=== PATIENT | female | born 1935 | race Caucasian/White ===

== ENCOUNTER 2022-10-14 11:33 | Day surgery (SDC) | payer MEDICARE, OTHER, SELFPAY ==
[2022-10-06 13:34] VITALS: BMI 22.1
[2022-10-14] VITALS (9 sets, daily range): BP systolic 124–185; BP diastolic 50–78; PULSE 62–82; RESP 12–20; TEMP 36.1–36.7; O2SAT 94–100; BMI 22.1; BMI 23.4
--- NOTE | 2022-10-14 | DI.RAD.S_ITS ---
PROCEDURE: [id number] W PEL IF PERFORMED INDICATIONS: INTRA OP TOTAL LEFT HIP TECHNIQUE: AP pelvis with lateral view(s) of the left hip(s). COMPARISON: [facility], CR, XR HIP W PEL IF DONE LT 2V, 10/14/2022, 15:37. Findings and impression: Multiple intraoperative images were obtained for left hip arthroplasty, which appears in appropriate position. Please see operative note for full details. Partially seen right hip degenerative changes. Dictated by: Brant Damon M.D. on 10/14/2022 at 17:26 Approved by: Brant Damon M.D. on 10/14/2022 at 17:26
--- NOTE | 2022-10-14 06:00 | DI.RAD.S_ITS ---
PROCEDURE: XR HIP W PEL IF DONE LT 2V INDICATIONS: left CHRISTIANO, anterior TECHNIQUE: AP pelvis with lateral view(s) of the left hip(s). COMPARISON: [facility] GENNA Aguilar, XR PELVIS WITH LATERAL HIP LEFT, 04/12/2022, 11:27. FINDINGS: Postsurgical changes reflecting left hip arthroplasty are present. Hardware is intact in good anatomic position. Soft tissues demonstrate postsurgical change. Severe arthritic changes are noted within the right hip. IMPRESSION: Status post left hip arthroplasty. Dictated by: Maude Avila M.D. on 10/14/2022 at 16:04 Approved by: Maude Avila M.D. on 10/14/2022 at 16:05
[2022-10-14] MEDS: MELOXICAM 7.5 MG TABLET 15 MG PO (12:07)
[2022-10-14] MEDS: VANCOMYCIN 1,000 MG/200 ML PIGGYBACK 200 MG IV (12:08)
[2022-10-14] MEDS: LACTATED RINGERS 1,000 ML 42 ML IV (12:08)
[2022-10-14 12:09] LABS: Add Manual Diff / Slide Review NO; Basophils Absolute Auto 0 /uL (0-100); Basophils Percent Auto 0.8 % (0-2); Eosinophils Absolute Auto 100 /uL (0-450); Eosinophils Percent Auto 1.3 % (2-4); Hemoglobin 12.9 g/dL (12.0-16.0); Lymphocytes Absolute Auto 1400 /uL (1100-4500); Lymphocytes Percent Auto 26.4 % (25-40); Mean Corpuscular Hemoglobin 32.8 PG (26-34); Mean Corpuscular Volume 96.2 fL (80-100); Monocytes Absolute Auto 300 /uL (0-900); Monocytes Percent Auto 6.3 % (3-14); Neutrophils Absolute Auto 3400 /uL (1500-7000); Neutrophils Percent Auto 65.2 % (50-75); Platelet Count 191 X10^3/uL (150-400); Red Blood Cell Count 3.95 X10^6/uL (4.0-5.2); Red Cell Distribution Width 12.5 % (11.6-14.8); White Blood Cell Count 5.3 X10^3/uL (4.5-11.0)
[2022-10-14 12:22] LABS: COVID19 -Nasal RAPID Negative (Negative)
--- NOTE | 2022-10-14 12:46 | PM.PREOP ---
Pre-operative Note Interval Note History & Physical reviewed/Exam performed by Physician: Yes Changes to H&P: No
--- NOTE | 2022-10-14 12:47 | PM.OP.1 ---
Operative Date/Time/Diagnoses Date of procedure: 10/14/22 Time of procedure: 12:47 Pre-op diagnosis: left hip OA Post-op diagnosis: same Procedure & Clinicians Procedure: left total hip arthroplasty anterior approach Same procedure as scheduled: Yes Indications: The patient has had progressively worsening left hip pain with radiographic changes consistent with arthritis. Non-operative management has failed and the patient has requested total hip replacement. The risks, benefits and alternatives to surgery were discussed with the patient prior to proceeding. Risks discussed included, but were not limited to, failure to relieve pain, leg length discrepancy, dislocation, stiffness, infection, nerve damage, deep venous thrombosis, pulmonary embolism, stroke, coma, heart attack, permanent paralysis and , as well as the potential need for eventual revision of the prosthetic. Surgeon: Kassy Ying Appeals Coordinator: Jose Raul Estrella Anesthesia Type: General and Spinal Operative Notes Findings: Soft bone, adequate stability Closure Type: primary Specimen(s): none sent Prosthetic devices, grafts, tissues, transplants, or devices: Ying and nephew anthology standard offset size 6, size 50 acetabulum R3, neutral poly liner, 32 x -3 cobalt chrome head, one 6.5 mm screw Estimated Blood Loss (mL): 250 Blood products transfused: none Procedure in detail: The patient was brought to the operating room. Patient was carefully positioned in the supine position. Time-out was performed and antibiotics were given. Anesthesia was induced. She was positioned in the on the table in order to allow hyperextension of the hip. The left lower extremity was prepped and draped in a standard sterile fashion. An anterior left hip incision was made 1 fingerbreadth lateral to the anterior superior iliac spine and extended distally towards the greater trochanter. Dissection was carried out through skin and subcutaneous tissues. Superficial hemostasis was achieved. The fascia over the tensor fascia juan luis was defined and incised with a knife. Two Allis clamps were used to grasp the fascia. Tensor fascia juan luis was retracted laterally. A gelpi retractor was placed. Dissection was carried out down along the neck. The circumflex vessels were carefully identified and cauterized with the Aqua Mantis. There was good visualization of the femoral neck. A Cobra was placed superior to the neck and the gluteus fibers were carefully stripped from that superior aspect of the capsule. A 2nd retractor was placed along the inferior aspect of the neck. The rectus insertion along the capsule was partially released. A 3rd retractor that was then gently placed over the rim of the acetabulum under the rectus. Capsule was carefully incised and released from the intertrochanteric line circumferentially superior to the mid sagittal line and inferiorly to the mid sagittal line until the lesser trochanter was palpable. A tag stitch was placed both in the superior and inferior limb of the capsular insertion. Along the acetabulum capsule was also released up to the mid sagittal 12:00 position. A portion of the labrum was resected. A saw was used to perform an osteotomy at the level of the intertrochanteric line and the junction of the superior femoral neck leaving approximately 1 finger breath of residual inferior neck above the lesser trochanter. A 2nd cut was made along the femoral neck at the base of the head and a napkin ring of neck was removed. Corkscrew was placed in the femoral head and the head was removed without difficulty. Retractors were then repositioned around the acetabulum. Residual labrum was resected and additional osteophytes were removed. A reamer that was 4 mm below the templated size was placed by hand in the acetabulum and it was reamed to centralize the acetabulum. It was then reamed up to 2 under the templated size and fluoroscopy was brought in to confirm the position of the reaming and depth of reaming. I reamed 1 under the anticipated size. A trial cup was placed and noted that it was appropriately sized and fluoroscopy confirmed position and depth. Small amount of the posterolateral wall which was mainly osteophyte broke off it was carefully removed. The cup was meticulously checked to make sure that there was adequate bony support for the acetabular component. The component was open and inserted without difficulty fluoroscopic imaging was used to confirm that the cup had been adequately seated and was well positioned. It was further stabilized with a single screw. Neutral poly liner was placed. The cup was tested and noted to be stable. Attention was then directed to the femur. The femur was gently hyperextended additional capsular release was performed as needed in order to allow adequate visualization of the proximal femur with elevation of the femur. Patient was placed in a hyperextended slightly adducted position with maximum external rotation. Box osteotome was used to check for any residual neck as well as sclerotic bone along the trochanter. [place] pepper was placed in the femur. Additional broaching was performed. Canal finder was used to determine the alignment of the canal and position. Size 1 broach was placed. The canal was then appropriately broached up to the templated size as long as there was adequate stability of the broach and serial advancement of the broach without excessive impingement. Specific attention was directed at avoiding varus attempting to direct the distal aspect of the broach more anteriorly and avoiding excessive anteversion. Trial reduction showed acceptable range of motion, good stability, no posterior impingement, sabianism of leg length and appropriate lateral shuck. I also hyperflexed the hip and checked that there was no impingement anteriorly and there was good stability with flexion, adduction and internal rotation. Marcaine and Exparel were injected.. The stem was placed without difficulty. Repeat trial reduction and x-ray showed acceptable overall position, length, and no evidence of the femoral fracture. Final head was placed. Wound was meticulously irrigated with normal saline. The hip was reduced and additional Exparel and Marcaine were injected. The capsule was closed with interrupted nonabsorbable sutures. The fascia of the tensor was closed with interrupted and running Vicryl. No drain was placed. Any tensor fascia juan luis muscle that appeared to be contused or injured which was a minimal amount was carefully resected. Capsule around the tensor was injected with Exparel and Marcaine. The skin was closed with barbed stitches for the subcutaneous tissue and skin. We also used surgical glue. The wound was dressed sterilely. Brief Betadine soak was also used and was meticulously irrigated with normal saline. Patient was transferred to recovery room in satisfactory condition. Complications: none Post-operative Condition: stable Disposition: observation Plan for aftercare: The patient will be maintained on a standard total hip replacement protocol with weight bearing as tolerated and anterior hip precautions. The patient will receive Aspirin and sequential compression devices for DVT prophylaxis. The patient will be discharged home when safe for the home environment.
[2022-10-14] MEDS: CEFAZOLIN 2 GM/100 ML PREMIX 100 ML IV ×2 (13:21→21:17)
--- NOTE | 2022-10-14 13:54 | SUR.OPER ---
Supine on padded [place] table with bilateral legs secured in padded positioning boots and suspended in positioning spars, operative leg in traction per surgeon. Head on one pillow. Arm on non-operative side secured on padded armboard <90 degrees abduction. Arm on operative side padded and resting across chest then secured with tape over sheet. Padded perineal post in place per surgeon.
[2022-10-14] MEDS: BUPIVACAINE LIPOSOME 266 MG/20 ML VIAL INJ (14:01)
[2022-10-14] MEDS: BUPIVACAINE 0.25% (PF) 60 ML, EPINEPHrine 0.3 MG INJ (14:02)
[2022-10-14] MEDS: BUPIVACAINE 0.5% (PF) 10 ML VIAL 50 ML INJ (14:05)
[2022-10-14] MEDS: TRANEXAMIC ACID 1,000 MG VIAL 2000 MG INJ (15:10)
[2022-10-14] MEDS: IBUPROFEN 400 MG TABLET PO ×2 (16:36→21:17)
[2022-10-14] MEDS: LACTATED RINGERS 1,000 ML 100 ML IV (16:36)
[2022-10-14] MEDS: ACETAMINOPHEN 325 MG TABLET 650 MG PO ×2 (16:36→22:05)
[2022-10-14] MEDS: BRIMONIDINE 0.2% OPHTH 5 ML 1 DROPS EYE-BOTH (19:50)
[2022-10-14] MEDS: CYCLOSPORINE 0.05% 1 EACH EYE-BOTH (19:51)
[2022-10-14] MEDS: ASPIRIN EC 81 MG TABLET PO (21:17)
[2022-10-14] MEDS: TIMOLOL 0.5% OPHTH 1 DROPS EYE-BOTH (21:18)
[2022-10-14] MEDS: AMLODIPINE 5 MG TABLET PO (21:18)
[2022-10-15] VITALS: BP 140/53; PULSE 75; RESP 17; TEMP 36.3; O2SAT 94
[2022-10-15 04:32] VITALS: BP 131/54; PULSE 61; RESP 18; TEMP 36.5; O2SAT 96
[2022-10-15] MEDS: CEFAZOLIN 2 GM/100 ML PREMIX 100 ML IV (05:12)
[2022-10-15 05:49] LABS: Hematocrit 29.7 % (36-46); Hemoglobin 10.3 g/dL (12.0-16.0)
--- NOTE | 2022-10-15 06:55 | PM.DS.1 ---
History of Present Illness History of Present Illness Date Patient Seen: 10/15/22 Time Patient Seen: 06:55 Chief complaint: Left CHRISTIANO *OPB* Narrative: Operative Date/Time/Diagnoses Date of procedure: 10/14/22 Time of procedure: 12:47 Pre-op diagnosis: left hip OA Post-op diagnosis: same Procedure & Clinicians Procedure: left total hip arthroplasty anterior approach Same procedure as scheduled: Yes Indications: The patient has had progressively worsening left hip pain with radiographic changes consistent with arthritis. Non-operative management has failed and the patient has requested total hip replacement. The risks, benefits and alternatives to surgery were discussed with the patient prior to proceeding. Risks discussed included, but were not limited to, failure to relieve pain, leg length discrepancy, dislocation, stiffness, infection, nerve damage, deep venous thrombosis, pulmonary embolism, stroke, coma, heart attack, permanent paralysis and , as well as the potential need for eventual revision of the prosthetic. Surgeon: Kassy Ying Director Family: Jose Raul Estrella Anesthesia Type: General and Spinal Operative Notes Findings: Soft bone, adequate stability Closure Type: primary Specimen(s): none sent Prosthetic devices, grafts, tissues, transplants, or devices: Ying and nephew anthology standard offset size 6, size 50 acetabulum R3, neutral poly liner, 32 x -3 cobalt chrome head, one 6.5 mm screw Estimated Blood Loss (mL): 250 Blood products transfused: none Discharge Providers Provider Discharge Date: 10/15/22 Primary care physician: OVI Hammer Consults: 10/14/22 06:00 Consult to Anesthesiology Routine Comment: Consulting Provider: Anesthesiologist Reason for consultation: Regional block for post operative pain control 10/14/22 16:06 Consult to Discharge Planning Routine Comment: Consult to Physical Therapy Evaluate & Treat Comment: Physician Instructions: post op CHRISTIANO protocol Discharge provider: Soco Savage PA-C Summary Hospital Course Discharge Diagnosis: Left hip osteoarthritis, s/p left total hip arthroplasty Hospital Course: Ms Barlow's hospital course was unremarkable. On POD#1 she was feeling well and wanted to go home. She was eating and voiding without difficulty and her pain was well-controlled with oral medication. She had not yet been evaluated by PT at the time of my visit. Exam Vital Signs (past 8 hours): - 10/15/22 00:00 10/15/22 04:32 Temperature 97.3 F L 97.7 F Pulse Rate 75 61 Respiratory Rate 17 18 Blood Pressure 140/53 L 131/54 L Pulse Oximetry 94 96 Oxygen Flow Rate 0 0 Oxygen Delivery Method Room Air Oxygen Flow Rate 0 Narrative Exam Narrative: 5/5 strength in hip flexors, quadriceps, hamstrings, DF, PF, EHL on left. Sensation to light touch intact throughout LLE. Calves soft, compressible, nontender and without palpable cords or masses. Aquacel dressing w/ scant bloody drainage, otherwise intact. Objective Labs 10/15/22 04:55 Labs: Laboratory Results - last 24 hr 10/14/22 10/14/22 10/15/22 11:52 12:00 04:55 WBC 5.3 RBC 3.95 L Hgb 12.9 10.3 L Hct 38.0 29.7 L MCV 96.2 MCH 32.8 MCHC 34.0 RDW 12.5 Plt Count 191 Neut % (Auto) 65.2 Lymph % (Auto) 26.4 [place] % (Auto) 6.3 Eos % (Auto) 1.3 L Baso % (Auto) 0.8 Neut # (Auto) 3400 Lymph # (Auto) 1400 [place] # (Auto) 300 Eos # (Auto) 100 Baso # (Auto) 0 SARS-CoV-2 (PCR) Negative PFSH Medical History (Updated 10/06/22 @ 14:14 by Fransisca García RN) Glaucoma HTN (hypertension) Osteoarthritis Seasonal allergies Surgical History (Updated 10/06/22 @ 14:14 by Fransisca García RN) History of partial colectomy (1993) Hx of bilateral cataract extraction Social History household members: none Smoking Status: Never smoker alcohol intake: current Discharge Assessment & Plan Assessment and Plan Assessment: Left hip osteoarthritis, s/p left total hip arthroplasty Plan of Treatment: Discharge home after PT if PT feels it is appropriate. Pt has discharge meds at home. ASA BID x 6 weeks for VTE prophylaxis, outpt PT, f/u in office in 2 weeks. Discharge Plan Discharge Plan Patient Disposition: Home Discharge orders & Medications Discharge Orders: Discharge (Order); Ordered 10/15/22 Ordered By: Soco Savage Prescriptions: Continued cetirizine [Zyrtec] 10 mg Tablet 10 mg PO DAILY PRN (Reason: Allergies) amlodipine 5 mg Tablet 5 mg PO BEDTIME acetaminophen 650 mg Tablet Extended Release 1,300 mg PO DAILY PRN (Reason: Pain) meloxicam 7.5 mg Tablet 7.5 mg PO DAILY PRN (Reason: Pain) lisinopril 5 mg Tablet 5 mg PO DAILY cyclosporine [Restasis] 0.05 % Dropperette 1 drp EYE-BOTH BID brimonidine-timolol [Combigan] 0.2-0.5 % Drops 1 drp EYE-BOTH BID Follow up/Referrals: Rosmery Mccray, [employer]- [Primary Care Provider] - Kassy Ying MD [Physician] - As previously scheduled (Follow up w/ Jose Raul Estrella PA-C, on 10/28/2022 @ 4:00 pm at [facility] office in [place].) Diet/Activity/Treatments Diet: Diet as Tolerated Activity: Weightbearing as tolerated to left leg. Anterior hip precautions. Cold/Heat Therapy: Ice to hip as needed for pain. Skin/Wound/Dressing Care Report to your healthcare provider any signs of infection, such as:: chills, fever, night sweats, unusual drainage and unusual redness Dressing: May shower. Leave Aquacel dressing in place until follow up in office. No bathing or otherwise soaking incision. Call the office if the dressing becomes saturated inside. Visit Report/Discharge Packet Instructions: DI for Hip Replacement Stand Alone Forms: Patient Portal/API, Surgery Discharge Discharge Data Primary Care Provider: Rosmery Mccray Attending Provider: Kassy Ying Quality VTE Deep Vein Thrombosis/Pulmonary Embolism Present on Admission: No
--- NOTE | 2022-10-15 07:30 | PT.IIE ---
Current Diagnoses Unilateral primary osteoarthritis, left hip (10/14/22) Surgery Performed Operation Date: 10/14/22 14:15 Actual Procedures p Total Hip Arthroplasty/Anterior(Left) - Kassy Ying MD Surgical History (Last Updated 10/06/22 @ 14:14 by Fransisca García, RN) History of partial colectomy (1993) Hx of bilateral cataract extraction Medical History (Last Updated 10/06/22 @ 14:14 by Fransisca García, RN) Glaucoma HTN (hypertension) Osteoarthritis Seasonal allergies Physical Therapy Inpatient Evaluation/Re-Eval M1 PT/OT-IP Prior Functional Status Start: 10/15/22 11:06 Freq: NEEDED Status: Discharge Protocol: Document 10/15/22 11:07 AMB (Rec: 10/15/22 11:17 AMB [id number]) Medical Review Prior Functional Status Medical History Reviewed Yes Diet/Fluid Consistency Regular Communication WNL Social History Household Members none Living Arrangements Apartment/Condo Number of Floors (Floors) 3 or More Floors Number of Stairs To Enter/Railing? 3 floors with 1 railing to enter, no elevator Home Equipment Front Wheel Walker Employment Status Retired Additional Social History Comment daughter will be staying with her for the first few days. M2 PT-IP Current Condition Start: 10/15/22 11:06 Freq: NEEDED Status: Discharge Protocol: Document 10/15/22 11:07 AMB (Rec: 10/15/22 11:17 AMB [id number]) Physical Therapy Current Condition Current Condition Evaluation Date 10/15/22 Treatment Diagnosis L anterior total hip Onset Date 10/14/22 M3 PT-IP Subjective Start: 10/15/22 11:06 Freq: NEEDED Status: Discharge Protocol: Document 10/15/22 11:07 AMB (Rec: 10/15/22 11:17 AMB [id number]) Subjective Physical Therapy Visit Type Type Initial Evaluation Visit Start Time 07:30 Visit Stop Time 08:10 Total Visit Minutes 40 Physical Therapy Visit Comments Patient Comments Pt ready to get up Therapy Pain Assessment Pain When Pain Assessed During Mobility Pain Present Pain Present Pain Reported Location Left Hip Intensity 4 M4 PT-IP Mobility and Gait Start: 10/15/22 11:06 Freq: NEEDED Status: Discharge Protocol: Document 10/15/22 11:07 AMB (Rec: 10/15/22 11:17 AMB [id number]) PT-Bed Mobility Assessment Rolling Type of Rolling Log Rolling Level of Assist Independent Supine to Sit Supine to Sit Standby Assistance,1 Person Assistance,Head of Bed Elevated PT-Transfer Assessment Sit to and From Stand Sit to and from Stand Standby Assistance Equipment Transfer Assistive Device Gait Belt Transfers Transfer Destination Bed,Chair,Wheelchair Transfer Technique Stand Step Pivot Transfer Ability Level of Assist Standby Assistance Gait Assessment Gait Gait Assistance Required: Contact Guard Assist Distance (Feet) 50 Assistive Devices Assistive Device Gait Belt,Front Wheeled Walker Gait Deviations General Gait Pattern Antalgic,Decreased Stride Length Factors Limiting Gait Function Factors Limiting Gait Function Decreased Strength,Pain Comments Gait Comments Gini ambulated with FWW and gait belt 20'x3, could have ambulated more but due to pacing/energy conservation and wanting to do stairs held more gait training. Stair Climbing Assessment Evaluation Level of Assist On Stairs Contact Guard Assistance,1 Person Assistance Devices Stair Climbing Assistive Devices Right Railing Technique/Endurance Stair Climbing Direction Ascend and Descend Stair Climbing Technique Step to Step Number of Steps Climbed 3 Query Text: Stair Climbing Set # Repetitions (reps) 4 Comments Stair Climbing Comments step to patterning with r railing ascending, discussion of how daughter should gaurd, instruction in gait belt M5 PT-IP Objective Assessments Start: 10/15/22 11:06 Freq: NEEDED Status: Discharge Protocol: Document 10/15/22 07:30 AMB (Rec: 10/15/22 13:03 AMB [id number]) Orientation Orientation/Cognition Level of Alertness Alert Strength Lower Extremity Strength Assessment Within Functional Limits M6 PT-IP Treatment Start: 10/15/22 11:06 Freq: NEEDED Status: Discharge Protocol: Document 10/15/22 07:30 AMB (Rec: 10/15/22 13:03 AMB [id number]) Physical Therapy Treatment Education Education Provided Precautions,Weight Bearing Status,Post-Op Packet,Safety M7 PT-IP Assessment and Plan Start: 10/15/22 11:06 Freq: NEEDED Status: Discharge Protocol: Document 10/15/22 07:30 AMB (Rec: 10/15/22 13:03 AMB [id number]) PT Summary Assessment and Plan Potential Rehabilitation Potential Good Status of Condition at Evaluation Stable Summary Impairments Pain,Strength Assessment Summary Gini is s/p anterior L hip. She did very well in PT. Did have 4/10 pain after stairs. SBA with FWW, ascend and descended 3 stepsx 4 with one railing and SBA with step to gait. She does have 3 flights of stairs, so was instructed in stairs and energy/pacing/ safety. She will benefit from outpatient physical therapy once home. Goals Bed Mobility Goal Independent Transfer Goal Standby Assistance Gait Goal Standby Assistance Gait Distance 100 Days to Meet Goals 3 Frequency of Treatment Frequency Of Treatment Discharge Precautions Anterior Hip Precautions No Hip External Rotation Weight Bearing Status Weight Bearing Status Weight Bear as Tolerated Recommendations To Nursing Amount of Assist Needed 1 Person Assist Discharge Recommendations PT Discharge Recommendations Home with Assistance, Outpatient PT Transportation Needs at Discharge Private Vehicle
[2022-10-15 07:54] VITALS: BP 120/62; PULSE 60; RESP 16; TEMP 36.6; O2SAT 97
[2022-10-15] MEDS: IBUPROFEN 400 MG TABLET PO ×2 (08:46→11:10)
[2022-10-15] MEDS: DOCUSATE 100 MG CAPSULE PO (08:46)
[2022-10-15] MEDS: ASPIRIN EC 81 MG TABLET PO (08:46)
[2022-10-15] MEDS: lisinopriL 5 MG TABLET PO (08:47)
[2022-10-15] MEDS: CYCLOSPORINE 0.05% 1 EACH EYE-BOTH (08:48)
[2022-10-15] MEDS: TIMOLOL 0.5% OPHTH 1 DROPS EYE-BOTH (08:48)
[2022-10-15] MEDS: BRIMONIDINE 0.2% OPHTH 5 ML 1 DROPS EYE-BOTH (08:48)
[2022-10-15] MEDS: ACETAMINOPHEN 325 MG TABLET 650 MG PO (09:13)
[2022-10-15 09:38] LABS: x Labcorp Estim. Avg Glu (eAG) 117 mg/dL (.); x Labcorp Hemoglobin A1c 5.7 % (4.8-5.6)
--- NOTE | 2022-10-15 12:00 | PC.NURSE ---
Day shift: Paperwork signed and all questions answered. Pt's Daughter in room for teachings. Pt has all personal belongings. No new MD scripts. Dressing remains CDI. PPP and CMS remains intact. SBA FWW. Pain well controlled per SEP. Taken to car via WC by this proposal writer at approx 1150. Pt's Daughter is driving her home to [place].
--- NOTE | 2022-10-15 12:15 | CM.DANOTE ---
Patient is an 86 yo female who was admitted on 10/14/22 for LTHA. Pt has [facility] and [employer] for insurance and her PCP is Rosmery Mccray. EMR was reviewed. Per Ortho PA, pt tolerated surgery well and medically stable to d/c home after PT eval. Per PT, recommending d/c to home with assist. SW met bedside with pt and explained role and she confirms she lives in [place] alone in an apartment and is active and independent at baseline and drives still but not long distances. Pt states that her Dtr/DPOA Maame is local and plans to stay with pt for at least a few days for assist and can stay longer if needed and will be the one to provide transport home. Pt denies any hx of HH or SNF and states she already has outpt PT set up and does not anticipate any further needs at discharge. Plan: Patient to d/c home before lunchtime via Dtr POV and Dtr will stay with pt to assist and outpt PT already set up. No further SW needs at this time. KATELIN Angel Discharge Planning/Care Management CM Discharge Assessment Start: 10/15/22 12:14 Freq: Status: Active Protocol: Document 10/15/22 12:15 BF (Rec: 10/15/22 12:15 BF [id number]) Discharge Planning Assessment Assigned Public Events Facilities Rental Manager KATELIN York DPMABLE/Assigned Designee Name [place] Isabel Advance Directives? Yes Advance Directives on File No History Provided By Patient,Medical Record Has Patient been admitted in last 30 No days? Prior Living Arrangements Apartment/Condo Household Members none Type of transporation used prior to Drives own vehicle admit Independent with ADL's Yes Is patient alert and oriented? Yes Caregiver for Another No Community Services used prior to Physical Therapy admission: DME Already Rented / Owned FWW / Walker Patient/Family Preference OP PT Therapy Barriers to Discharge No Discharge Plan Home Community Services Physical Therapy Transportation Arrangement Dtr to provide transport at d/ c Referrals Initiated None needed Whiteboard Updated in Patient Room with Yes name and ext. # of Public Events Facilities Rental Manager Review Status In Process Please Provide Date Initial DC 10/15/22 Assessment Was Performed Next Review Type Continued Stay Review Pre-Anesthesia Assessment Start: 10/06/22 13:34 Freq: Status: Discharge Protocol: Document 10/06/22 13:34 CAB (Rec: 10/06/22 14:33 [facility] [id number]) Pre-Anesthesia Assessment Patient Information Reviewed Via Phone Assessment Assessment Completed With Patient Diagnostic Results EKG Comment Outside EKG scanned, Labs done in Jul, not here Primary Care Provider Rosmery Mccray Seen Specialist in Last 12 Months Yes Specialist Seen Orthopedist Primary Language [employer] Field Appraiser Required No Height 161.29 cm Weight 57.606 kg Body Mass Index (BMI) 22.1 Hearing Ability Normal Visual Assist Magnifying Glass Dentition Type Teeth, Natural Present Barriers to Learning None Hx Anesthesia Reactions No Hx Family Anesthesia Reaction No Hx Malignant Hyperthermia No Hx Blood Transfusions No Anesthesia Review Requested No Quarantine Officer No alcohol intake current alcohol intake frequency 0-2 drinks per day Smoking Status Never smoker Substance Use Type does not use Pain Present Pain Reported Musculoskeletal Symptoms Abnormal Gait,Back Pain, Difficulty Walking,Joint Pain History of Falling (Recent or History of No ) Patient is completely paralyzed or No completely immobile Mental Status Oriented to own ability Comment Walking stick Is patient on oxygen? No Does patient have MATT/SOB No Hx Sleep Apnea No Currently Taking a Beta Bebeto No Can You Climb a Flight of Stairs Without Yes SOB Hx Chest Pain No Hx SOB No Hx Syncope or Dizziness No Anti-Coagulant Therapy No Has a Cattle Rancher No Cardiac Testing No Hx Pacemaker/ICD No Pacemaker Rep Required? No Diet Type At Home Regular Dysphagia No Gastrointestinal Symptoms None Chronic UTI No Urinary Catheter Present No Hx Urinary Self Catheterization No Diabetes No Patient No Lactating No Hx Drug Resistant Organism No Presence of External or Internal Medical Yes: [place] eye IOLs Devices Have you had any close contact with No someone diagnosed with COVID-19? Received a COVID vaccine? Yes Received all doses? Yes Marital Status Single Lives With none Current Living Arrangements Apartment/Condo Number of Floors (Floors) 3 or More Floors Support System Child/Children Does the Patient Have Assistance After Yes: Daughter will stay w/pt Surgery off and on @ DC Patient Discharge Plan Description Return Home Comment Pt not advised on length of stay per surgeon Feels Safe in Current Environment Yes Been Physically Hurt or Threatened By a No Person in Current Environment Do you have thoughts of harming yourself None or others? Are you currently considering suicide? No Do you have a plan to hurt yourself or No Plan others? Do You Have Any Spiritual Beliefs That No May Affect Your HC Choices? Do You Have Any Cultural Practices That No May Affect Your HC Choices? Comment Yuliya Who Can We Speak to About Patient's Care Family, friends Identifying Code for Release of Patient Declines to issue Information Health Care Proxy/Next of Kin Acosta (son) Health Care Proxy Emergency Contact Name Maame (daughter0 Emergency Contact Advance Directives? Yes Advance Directives on File No Requested Patient Bring Advanced Yes Directives DOS Power of Reservations Clerk Yes Power of Reservations Clerk Name Acosta (son) Power of Reservations Clerk PAC Instructions Do not shave/clip surgical site,Durable medical equipment ,Medications to take/avoid, Nasal antibiotic,No ETOH/ petroleum product on skin DOS, NPO,Post-op transportation,Pre -surgical wash,Sensory aids, Sturdy shoes/comfortable clothes,Do not bring valuables and remove jewelry
== END 2022-10-15 12:02 | disposition home or self-care (01) ==
LOC: OR 11:40 → AC 16:09
PROVIDERS: PCP Nurse Practitioner Family; Referring Provider Orthopaedic Surgery; Visit Provider Orthopaedic Surgery
PROC: (CPT 27130; principal; 2022-10-14 14:15)
DX: M16.12 Unilateral primary osteoarthritis, left hip (principal); Z20.822 Contact with and (suspected) exposure to COVID-19
CPT/HCPCS: 27130; 36415; 73502; 73503; 76000; 83036; 85014; 85018; 85025; 87635; 97161; C1776; C9803; C9290; J0171; J0690; J1100; J2250; J2405; J2704; J3010